=== PATIENT | female | born 1945 | race Caucasian/White ===

== ENCOUNTER 2019-02-15 15:50 | Inpatient (IN) | payer OTHER ==
[~2019-02-15] VITALS: Ht 160 cm; Wt 74.8 kg
--- NOTE | 2019-02-15 19:00 | NUR ---
Admitted a 74 y/o female from [facility]. On 5150 hold as DTS. Patient admitting Dx. Depression. Medical dx. endometriosis, acute kidney disease. NKA. Upon face to face evaluation, patient appeared alert and oriented x 3-4, calm, cooperative, hyperverbal, denies SI/HI/AH/VH, patient c/o depression only, patient believed that her antidepressant is not working that is why she is not taking it anymore. Patient also complained that she continuously gaining weight because of the antidepressant that she was taking. Explanation provided, limit settings done and redirected the patient. Explained the paper works by the marilynn shift . Informed of visiting hours and unit policies. Belongings and contraband checked. Q15 min checks initiated. Care plan started. Vital signs checked and recorded. Patient's rights discussed, guide to prescription meds handbook provided. Patient advised of the hold. Notified Dr. Narayan of the admission. Notified Dr. Issa to reconcile the medication. made aware of the admission. Will monitor patient for mood, safety and behavior. Will endorse to the day shift. Addendum: 02/16/19 at 0414 by RAVIN FLYNN II, RN Clarifications: Patient evaluated from [facility]
[2019-02-15] MEDS ORDERED: LORAZEPAM 0.5 MG TABLET PO PRN (20:00)
[2019-02-15] MEDS ORDERED: MAG HYDROX/AL HYDROX/SIMETH 30 ML UDC PO PRN (20:00)
[2019-02-15] MEDS ORDERED: TEMAZEPAM 7.5 MG CAPSULE PO PRN (20:00)
[2019-02-15] MEDS ORDERED: MAGNESIUM HYDROXIDE 30 ML UDC PO PRN (20:00)
[2019-02-15] MEDS ORDERED: ACETAMINOPHEN 325 MG TABLET PO PRN (20:00)
[2019-02-15] MEDS ORDERED: LOSA50TA39 PO (20:05)
[2019-02-15] MEDS ORDERED: OSPE60TA2 PO (20:05)
[2019-02-15] MEDS ORDERED: ROSU5TAB13 PO (20:05)
[2019-02-15] MEDS ORDERED: ARIP5TAB59 PO (20:05)
[2019-02-15 20:17] VITALS: BP 141/72
[2019-02-15 21:32] VITALS: BP 145/70
[2019-02-15] MEDS ORDERED: BLOOD SUGAR DIAGNOSTIC 1 EACH STRIP IN ONE (22:00)
[2019-02-16 08:00] VITALS: BP 107/67
[2019-02-16 08:19] LABS: ALBUMIN 3.2 g/dL (3.4-5.0); BILIRUBIN,TOTAL 0.5 mg/dL (0.2-1.0); CALCIUM, SERUM 8.9 mg/dL (8.5-10.1); CHOLESTEROL 207 mg/dL (<200); CREATININE 0.7 mg/dL (0.6-1.3); HDL CHOLESTEROL 78 mg/dL (40-60); LDL 115 mg/dL (0-99); POTASSIUM 3.8 mmol/L (3.5-5.1); TOTAL PROTEIN, SERUM 7.1 g/dL (6.4-8.2); TRIGLYCERIDES 82 mg/dL (30-150)
--- NOTE | 2019-02-16 13:35 | NUR ---
Family Contact: SW called the pts , Emery ([phone]), and left a voicemail stating that the SW would like to speak to him regarding the pts discharge. Addendum: 02/16/19 at 1343 by BILL DUNN Pt had informed the SW that the pts does not like using phones and therefore he will most likely not answer.
--- NOTE | 2019-02-16 13:41 | NUR ---
Initial Discharge Plan: Pt currently resides with her in their home located at [address] [place] [address]; ([phone]). Per pt, she would like to return to her home once she is stable for discharge. SW will work with the pt and the MD regarding appropriate discharge planning. SW will form a safe and proper plan.
[2019-02-16] MEDS: FLUOXETINE HCL 20 MG CAPSULE PO SCH (15:43)
[2019-02-16 16:00] VITALS: BP 145/98
[2019-02-16 20:01] VITALS: BP 140/86
[2019-02-17 08:00] VITALS: BP 119/86
[2019-02-17] MEDS: FLUOXETINE HCL 20 MG CAPSULE PO SCH (08:32)
--- NOTE | 2019-02-17 09:00 | NUR ---
UR Note: SHAUN faxed a clinical to [facility] with attention to Stacia to the fax number: [phone].
--- NOTE | 2019-02-17 10:18 | NUR ---
UR Note: SHAUN called Stacia ([phone]) from [facility] and conducted a live clinical that informed her about the pts current treatment. She authorized three additional days from 02/18-02/20 with a review due on Thursday if needed. SHAUN stated that the pt is requesting an in network provider. She stated that she would fax over psychiatrist information for the pt.
--- NOTE | 2019-02-17 12:55 | NUR ---
PATIENT C/O HEADACHE. PRN TYLENOL GIVEN.
[2019-02-17] MEDS ORDERED: LORAZEPAM 1 MG TABLET PO PRN (14:00)
[2019-02-17 16:00] VITALS: BP 133/73
[2019-02-17 20:39] VITALS: BP 143/84
[2019-02-17] MEDS: TRAZODONE 50 MG TABLET PO PRN (20:43)
--- NOTE | 2019-02-17 20:45 | NUR ---
GPS RN NOTES: PT C/O UNABLE TO SLEEP. PT STATED, " CAN I HAVE SLEEPING MEDICATION?" OFFERED DESYREL 50 MG PO PRN ORDERED. PT AGREED. ADMINISTERED MEDICATION. PT TOLERATED WELL. CONT TO MONITOR.
--- NOTE | 2019-02-18 07:30 | NUR ---
INITIAL PT LYING BED CALMLY RESTING RESPIRATIONS EVEN. WILL CONTINUE TO MONITOR PT.
[2019-02-18 08:00] VITALS: BP 133/73
[2019-02-18] MEDS: FLUOXETINE HCL 20 MG CAPSULE PO SCH (08:44)
--- NOTE | 2019-02-18 10:45 | NUR ---
UR Note: SHAUN called Stacia ([phone]) from [facility] and informed her that the SW did not receive the fax with information on in network psychiatrists for the pt and she stated that she would send it right now.
--- NOTE | 2019-02-18 10:45 | NUR ---
Family Contact: SW called the pts , Emery ([phone]), and left a voicemail stating that the SW would like to speak to him regarding the pts discharge.
--- NOTE | 2019-02-18 15:20 | NUR ---
Individual Intervention: SW spoke to the pt about her discharge back home the next week and her frustrations around her time in the hospital. SW encouraged the pt to participate in her treatment and provided her with multiple psychiatrist referrals.
[2019-02-18 16:00] VITALS: BP 163/87
--- NOTE | 2019-02-18 19:26 | NUR ---
CLOSING PT COMITANT WITH ALL MEDICATIONS WILL ENDORSE CARE TO PM SHIFT RN FOR CONTINUITY OF CARE
[2019-02-18 21:06] VITALS: BP 153/77
[2019-02-18] MEDS: TRAZODONE 50 MG TABLET PO PRN (21:13)
[2019-02-19 08:00] VITALS: BP 124/63
[2019-02-19] MEDS: FLUOXETINE HCL 20 MG CAPSULE PO SCH (08:46)
[2019-02-19 16:00] VITALS: BP 132/63
[2019-02-19 20:15] VITALS: BP 139/66
[2019-02-19] MEDS: TRAZODONE 50 MG TABLET PO PRN (21:14)
[2019-02-20 08:00] VITALS: BP 114/76
[2019-02-20] MEDS: FLUOXETINE HCL 20 MG CAPSULE PO SCH (09:04)
[2019-02-20 16:00] VITALS: BP 129/75
[2019-02-20 20:08] VITALS: BP 143/71
[2019-02-20] MEDS: TRAZODONE 50 MG TABLET PO PRN (20:27)
--- NOTE | 2019-02-20 21:00 | NUR ---
RN NOTES PATIENT REQUEST FOR SLEEPING MEDICATION. TRAZODONE 50MG GIVEN BY MOUTH. WILL CONTINUE TO MONITOR
--- NOTE | 2019-02-21 06:30 | NUR ---
RN CLOSING NOTES PATIENT IN BED ALERT AND ORIENTED X 3. VERBALLY RESPONSIVE AND ABLE TO FOLLOW DIRECTIONS. BREATHING REGULAR AND UNLABORED ON ROOM AIR. SLEPT FOR ABOUT 6-8HRS LAST NIGHT. NO EPISODE OF AGITATION OR DEPRESSIVE BEHAVIOR NOTED THE WHOLE SHIFT. REMAINED CALM AND COOPERATIVE. COMPLIANT WITH HER MEDICATIONS. BED LOW AND LOCKED ON FLAT POSITION. WILL ENDORSE TO MORNING SHIFT FOR JANNET.
[2019-02-21 08:00] VITALS: BP 139/72
[2019-02-21] MEDS: FLUOXETINE HCL 20 MG CAPSULE PO SCH (08:44)
--- NOTE | 2019-02-21 10:39 | NUR ---
Family Contact: SW called the pts , Emery ([phone]), and informed him that the pt is going to be discharged today and he stated that he would come pick her up around 1pm.
--- NOTE | 2019-02-21 13:20 | NUR ---
MOBILE PARAMEDICAL EXAMINER NOTES PATIENT DISCHARGED TO HOME TODAY PER MD IN STABLE CONDITION. PROVIDED DC INSTRUCTIONS, ED RECON LIST AND HEALTH TEACHINGS. VERBALIZED UNDERSTANDING TO ALL INSTRUCTIONS GIVEN. ALL BELONGINGS CHECKED AND RETURNED. ALL PAPERWORKS SIGNED. PATIENT TO FOLLOW UP WITH PSYCH AND COMMERCIAL CONSTRUCTION ESTIMATOR IN 1 WEEK AND WILL MAKE OWN SCHEDULE C/O . PATIENT ACCOMPANIED TO LOBBY BY AND MARIE RODGERS AND WILL GO HOME VIA PRIVATE CAR.
--- NOTE | 2019-02-21 16:01 | NUR ---
Discharge Note: Pt was discharged back to her [place] at [address] [place] [id number]; ([phone]). Pt was picked up by her , Emery ([phone]), around 1pm. Upon discharge, the pt appeared to be in a euthymic mood and presented with a calm affect. Pt denied both suicidal and homicidal ideation as well as auditory and visual hallucinations. Pt was provided with psychiatrist referrals and outpatient program referrals. Pt will be under the care of her psychiatrist, Dr. Jaquan Jacinto, located at [address], [address], [place] [address]; and her route aide, Dr. Bela Clemens, located at [address] [place] [phone]; ; and a fax of records was sent to: [phone].
--- NOTE | 2019-02-22 12:01 | NUR ---
UR Note: SHAUN faxed a discharge clinical to [facility] with attention to Stacia to the fax number: [phone].
== END 2019-02-21 13:20 | disposition home or self-care (01) | DRG 885 ==
LOC: GPS 17:18
PROVIDERS: ADMIT Psychiatry & Neurology Psychiatry; ATTEND Internal Medicine
DX: F33.2 Major depressive disorder, recurrent severe without psychotic features (principal); F23 Brief psychotic disorder; R45.851 Suicidal ideations; E44.1 Mild protein-calorie malnutrition; F41.9 Anxiety disorder, unspecified; F60.9 Personality disorder, unspecified; Z68.29 Body mass index [BMI] 29.0-29.9, adult
CPT/HCPCS: 36415; 80053-TC; 80061-TC; 87081-TC